=== PATIENT | male | born 1955 | race Caucasian/White ===

== ENCOUNTER 2021-10-26 17:27 | Emergency (ER) | payer SELFPAY ==
[~2021-10-26] VITALS: Ht 177.8 cm; Wt 82.0 kg
[2021-10-26 17:33] VITALS: BP 125/74
[2021-10-26] MEDS ORDERED: [UNRECOGNIZED DRUG - OTHER] (17:39)
[2021-10-26] MEDS ORDERED: APIX5TAB PO (17:39)
== END 2021-10-26 20:56 | disposition left against medical advice (07) ==
LOC: ER 17:27
DX: Z53.21 Procedure and treatment not carried out due to patient leaving prior to being seen by health care provider (principal)
CPT/HCPCS: 82962